=== PATIENT | female | born 1925 | race Caucasian/White ===

== ENCOUNTER 2016-12-29 11:30 | Emergency (ER) | payer MEDICARE ==
[2016-12-29] MEDS ORDERED: Sodium Chloride 0.9% 1000 ML 1,000 ML IV SCH (12:00)
--- NOTE | 2016-12-29 12:01 | ERPHSYRPT ---
- History of Present Illness Time Seen by Provider: 12/29/16 11:55 Source: patient, family Exam Limitations: no limitations Physician History: This is an 89-year-old white female with history of atrial fibrillation, peripheral vascular disease, edema, pulmonary nodule, Alzheimer's Patient is brought by her daughter with complaints that the patient has been having very foul-smelling urine has been extremely weak over the past 4 days. Patient has had an occasional cough, no fevers she denies any shortness of breath she denies any chest pain. The nurses report that the patient was extremely weak and had to be helped to stand. 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, iron deficiency anemia, degenerative joint disease, GERD, arthritis, lumbar radiculopathy, a kidney cyst, and hematuria past surgical history includes hysterectomy Timing/Duration: day(s) (symptoms for 4 days) Severity: moderate Modifying Factors: Improves With: nothing Associated Symptoms: loss of appetite, weakness, No nausea, No vomiting, No abdominal pain, No shortness of breath, No heartburn, No diaphoresis, No cough, No chills, No chest pain, No fever, No headaches, No malaise, No rash, No syncope, No seizure Allergies/Adverse Reactions: oxytetracycline [From Terramycin] Allergy (Verified 12/29/16 11:50) oxytetracycline HCl [From Terramycin] Allergy (Verified 12/29/16 11:50) Sulfa (Sulfonamide Antibiotics) Allergy (Verified 12/29/16 11:50) Home Medications: No Home Meds 1 [facility] UD 09/27/15 [History] Hx Tetanus, Diphtheria Vaccination/Date Given: No Hx Influenza Vaccination/Date Given: No Hx Pneumococcal Vaccination/Date Given: No - Review of Systems Constitutional: Weakness (patient has been weak and has not wanted to get out of bed for 4 days), No Fever, No Chills Eyes: No Symptoms Ears, Nose, & Throat: No Symptoms, No Ear Pain, No Ear Discharge, No Hearing Changes, No Tinnitus, No Nose Pain, No Nose Congestion, No Nose Discharge, No Sinus Drainage, No Epistaxis, No Mouth Pain, No Mouth Swelling, No Loose Teeth, No Throat Pain, No Throat Swelling, No Hoarse, No Painful Swallowing, No Snoring Respiratory: No Cough, No Dyspnea Cardiac: No Chest Pain, No Edema, No Syncope Abdominal/Gastrointestinal: Appetite Changes, No Abdominal Pain, No Nausea, No Vomiting, No Diarrhea Genitourinary Symptoms: Other (foul-smelling urine), No Dysuria, No Frequency, No Hematuria, No Hesitancy, No Incontinence, No Urgency, No Urinary Retention, No Flank Pain, No Menorrhagia, No , No Vaginal Bleeding, No Vaginal Discharge, No Vaginal Itching Musculoskeletal: No Back Pain, No Neck Pain Skin: No Rash Neurological: No Dizziness, No Focal Weakness, No Sensory Changes Psychological: No Symptoms Endocrine: No Symptoms All Other Systems: Reviewed and Negative - Past Medical History Pertinent Past Medical History: Yes Cardiac History: Arrhythmia Musculoskeletal History: Arthritis Other Medical History: anemia SHINGLES - Past Surgical History Past Surgical History: Yes Musculoskeletal: Orthopedic Surgery Female Surgical History: Hysterectomy Other Surgical History: ARM FRACTURE - Social History Smoking Status: Never smoker Exposure to second hand smoke: No Drug Use: none Patient Lives Alone: No - Nursing Vital Signs Nursing Vital Signs: Initial Vital Signs Temperature 97.9 F Temperature Source Oral Pulse Rate 92 Respiratory Rate 16 Blood Pressure [] 128/70 - Physical Exam General Appearance: no apparent distress, alert, other (well-developed elderly female alert oriented to person and place) Eye Exam: PERRL/EOMI, eyes nml inspection Ears, Nose, Throat Exam: normal ENT inspection, TMs normal, pharynx normal, moist mucous membranes Neck Exam: normal inspection, non-tender, supple, full range of motion Respiratory Exam: normal breath sounds, lungs clear, No respiratory distress Cardiovascular Exam: regular rate/rhythm, normal heart sounds, normal peripheral pulses Gastrointestinal/Abdomen Exam: soft, normal bowel sounds, No tenderness, No mass Back Exam: normal inspection, normal range of motion, No CVA tenderness, No vertebral tenderness Extremity Exam: normal inspection, normal range of motion, pelvis stable Neurologic Exam: alert, oriented x 3, cooperative, terminal worker II-XII nml as tested, normal mood/affect, other (patient is alert, oriented person and place, cranial nerves II through XII are intact tank builder are symmetrical and equal 5 over 5 finger to nose within normal limits speech is normal sensation intact to all extremities) Skin Exam: normal color, warm, dry, No rash SpO2 Interpretation: normal - Course Nursing assessment & vital signs reviewed: Yes EKG Interpreted by Me: RATE (73 bpm), Sinus Rhythm, NORMAL AXIS, NORMAL QRS, Other (EKG, atrial fibrillation 73 beats per minute normal axis no acute ST or T wave changes compared to September 27, 2015) - Radiology Exams Chest X-ray Interpretation: Interpreted by me, Negative, No Pneumonia, No Pneumothorax , Other (no acute disease process noted) Ordered Tests: Active Orders 24 hr Category Date Time Status Cath for Specimen-Straight STAT Care 12/29/16 11:52 Active EKG-ER Only STAT Care 12/29/16 11:52 Active IV Insertion STAT Care 12/29/16 11:52 Active CHEST 1 VIEW (PORTABLE) Stat Exams 12/29/16 11:52 Taken AMYLASE Stat Lab 12/29/16 12:02 Completed CBC W DIFF Stat Lab 12/29/16 12:02 Completed CMP Stat Lab 12/29/16 12:02 Completed LIPASE Stat Lab 12/29/16 12:02 Completed Lactic Acid Urgent Lab 12/29/16 12:03 Completed TROPONIN Stat Lab 12/29/16 12:02 Completed UA W/ MICROSCOPIC Stat Lab 12/29/16 13:00 Completed Medication Summary Generic Name Dose Route Start Last Admin Trade Name Freq PRN Reason Stop Dose Admin Sodium Chloride 1,000 mls @ 50 mls/hr 12/29/16 12:00 12/29/16 12:11 Sodium Chloride 0.9% 1000 Ml IV 01/28/17 11:59 50 mls/hr .Q20H CARMELINA Administration Discontinued Medications Generic Name Dose Route Start Last Admin Trade Name Freq PRN Reason Stop Dose Admin Sodium Chloride Confirm 12/29/16 12:02 Sodium Chloride 0.9% 1000 Ml Administered 12/29/16 12:03 Dose 1,000 mls @ ud .ROUTE .STK-MED ONE Lab/Rad Data: Laboratory Result Diagrams 12/29/16 12:02 12/29/16 12:02 Laboratory Results 12/29/16 12/29/16 12/29/16 Range/Units 13:00 12:03 12:02 WBC (4.0-10.5) K/mm3 RBC (4.1-5.4) M/mm3 Hgb (12.0-16.0) gm/dl Hct (35-47) % MCV (78-100) fl MCH (26-32) pg MCHC (32-36) g/dl RDW (11.5-14.0) % Plt Count (150-450) K/mm3 MPV (6-9.5) fl Gran % (36.0-66.0) % Lymphocytes % (24.0-44.0) % Monocytes % (0.0-12.0) % Eosinophils % (0.00-5.0) % Basophils % (0.0-0.4) % Basophils # (0-0.4) Sodium 141 (136-145) mEq/L Potassium 4.2 (3.5-5.1) mEq/L Chloride 105 (98-107) mEq/L Carbon Dioxide 26.7 (21-32) mEq/L Anion Gap 13.9 (5-15) MEQ/L BUN 16 (9-20) mg/dL Creatinine 0.85 (0.55-1.30) mg/dl Estimated GFR > 60 ML/MIN Glucose 89 (70-110) MG/DL Lactic Acid 1.0 (0.4-2.0) Calcium 8.9 (8.5-10.1) mg/dL Total Bilirubin 0.5 (0.2-1.0) mg/dL AST 17 (15-37) U/L ALT 14 (12-78) U/L Alkaline Phosphatase 73 (46-116) U/L Troponin I < 0.017 (0.000-0.056) ng/ml Serum Total Protein 6.5 (6.4-8.2) gm/dL Albumin 3.5 (3.4-5.0) g/dL Amylase 46 (25-115) U/L Lipase 171 (73-393) U/L Ur Collection Type CATH Urine Color YELLOW (YELLOW) Urine Appearance CLEAR (CLEAR) Urine pH 6.0 (5-6) Ur Specific [place] 1.015 (1.005-1.025) Urine Protein NEGATIVE (Negative) Urine Glucose (UA) NEGATIVE (NEGATIVE) mg/dL Urine Ketones NEGATIVE (NEGATIVE) Urine Nitrite NEGATIVE (NEGATIVE) Urine Bilirubin NEGATIVE (NEGATIVE) Urine Urobilinogen 1 (0-1) mg/dL Urine WBC (Auto) NEGATIVE (NEGATIVE) Urine RBC (Auto) MODERATE (0-5) Donald/ul Urine Microscopic RBC 10-15 (0-2) /HPF Urine Microscopic WBC 0-2 (0-5) /HPF Ur Epithelial Cells FEW (FEW) /HPF Urine Bacteria FEW (NEGATIVE) /HPF Urine Mucus SLIGHT (NEGATIVE) /HPF Specimen Received 12/29/16 1300 12/29/16 Range/Units 12:02 WBC 4.1 (4.0-10.5) K/mm3 RBC 3.61 L (4.1-5.4) M/mm3 Hgb 11.5 L (12.0-16.0) gm/dl Hct 35.1 (35-47) % MCV 97.2 (78-100) fl MCH 31.8 (26-32) pg MCHC 32.8 (32-36) g/dl RDW 15.3 H (11.5-14.0) % Plt Count 245 (150-450) K/mm3 MPV 9.8 H (6-9.5) fl Gran % 45.5 (36.0-66.0) % Lymphocytes % 39.2 (24.0-44.0) % Monocytes % 13.1 H (0.0-12.0) % Eosinophils % 1.7 (0.00-5.0) % Basophils % 0.5 (0.0-0.4) % Basophils # 0.02 (0-0.4) Sodium (136-145) mEq/L Potassium (3.5-5.1) mEq/L Chloride (98-107) mEq/L Carbon Dioxide (21-32) mEq/L Anion Gap (5-15) MEQ/L BUN (9-20) mg/dL Creatinine (0.55-1.30) mg/dl Estimated GFR ML/MIN Glucose (70-110) MG/DL Lactic Acid (0.4-2.0) Calcium (8.5-10.1) mg/dL Total Bilirubin (0.2-1.0) mg/dL AST (15-37) U/L ALT (12-78) U/L Alkaline Phosphatase (46-116) U/L Troponin I (0.000-0.056) ng/ml Serum Total Protein (6.4-8.2) gm/dL Albumin (3.4-5.0) g/dL Amylase (25-115) U/L Lipase (73-393) U/L Ur Collection Type Urine Color (YELLOW) Urine Appearance (CLEAR) Urine pH (5-6) Ur Specific [place] (1.005-1.025) Urine Protein (Negative) Urine Glucose (UA) (NEGATIVE) mg/dL Urine Ketones (NEGATIVE) Urine Nitrite (NEGATIVE) Urine Bilirubin (NEGATIVE) Urine Urobilinogen (0-1) mg/dL Urine WBC (Auto) (NEGATIVE) Urine RBC (Auto) (0-5) Donald/ul Urine Microscopic RBC (0-2) /HPF Urine Microscopic WBC (0-5) /HPF Ur Epithelial Cells (FEW) /HPF Urine Bacteria (NEGATIVE) /HPF Urine Mucus (NEGATIVE) /HPF Specimen Received - Progress Progress: improved Progress Note: 12/29/16 13:30 Patient's labs are all essentially normal. Patient's vitals are normal. EKG positive for atrial fibrillation with controlled rate patient does have a history of atrial fibrillation. Patient denies any pain shortness of breath. Patient's daughter feels like she can care for her at home. Will plan for patient to return home and follow-up with Dr. Talley Saturday. 12/29/16 13:37 12/29/16 13:54 Patient's daughter states that the patient chronically uses a walker or a wheelchair. - Departure Time of Disposition: 13:32 Departure Disposition: Home Clinical Impression: Weakness Condition: Fair Critical Care Time: No Referrals: VERNON TALLEY [Primary Care Provider] -
[2016-12-29 12:02] VITALS: O2SAT 96
[2016-12-29] MEDS ORDERED: Sodium Chloride 0.9% 1000 ML 1,000 ML ONE (12:02)
[2016-12-29 12:19] LABS: BASOPHIL % 0.5 % (0.0-0.4); Eosinophil % 1.7 % (0.00-5.0); Granulocytes % 45.5 % (36.0-66.0); Lymphocytes % 39.2 % (24.0-44.0); Mean Cell Volume 97.2 fl (78-100); Mean Platelet Volume 9.8 fl (6-9.5); Monocytes % 13.1 % (0.0-12.0); Platelet Count 245 K/mm3 (150-450); Red Blood Count 3.61 M/mm3 (4.1-5.4); Red Cell Distribution Width 15.3 % (11.5-14.0); White Blood Count 4.1 K/mm3 (4.0-10.5)
[2016-12-29 12:20] LABS: Mean Corpuscular Hemoglobin 31.8 pg (26-32)
[2016-12-29 12:38] LABS: ALBUMIN 3.5 g/dL (3.4-5.0); ALKALINE PHOSPHATASE 73 U/L (46-116); ANION GAP 13.9 MEQ/L (5-15); BILIRUBIN,TOTAL 0.5 mg/dL (0.2-1.0); BLOOD UREA NITROGEN 16 mg/dL (9-20); CHLORIDE 105 mEq/L (98-107); Carbon Dioxide 26.7 mEq/L (21-32); Glucose 89 MG/DL (70-110); LIPASE 171 U/L (73-393); Potassium 4.2 mEq/L (3.5-5.1); SGOT/AST 17 U/L (15-37); SGPT/ALT 14 U/L (12-78); SODIUM 141 mEq/L (136-145); Total Protein 6.5 gm/dL (6.4-8.2)
[2016-12-29 12:40] LABS: TROPONIN < 0.017 ng/ml (0.000-0.056)
[2016-12-29 13:07] LABS: Collection Type CATH
[2016-12-29 13:08] LABS: COMPLETE URINE MICROSCOPIC? YES
[2016-12-29 13:24] LABS: Bacteria FEW /HPF (NEGATIVE); Epithelial Cells FEW /HPF (FEW); Mucus SLIGHT /HPF (NEGATIVE); WBC 0-2 /HPF (0-5)
[2016-12-29 14:21] VITALS: BP 126/76; PULSE 88
--- NOTE | 2016-12-29 20:37 | XRAY ---
Indication: Weakness. Comparison: September 27, 2015. Portable chest again hyperinflated and clear. Heart and mediastinal structures stable and within normal limits for AP portable technique. Descending aorta remains tortuous. Stable hiatal hernia. Bony thorax intact again with mild osteopenia and multilevel spinal degenerative changes. Impression: Stable nonacute chest with chronic features.
== END 2016-12-29 14:19 | disposition home or self-care (01) ==
LOC: ED 11:30
DX: R53.1 Weakness (principal); R82.90 Unspecified abnormal findings in urine; I48.2 Chronic atrial fibrillation; I73.9 Peripheral vascular disease, unspecified; G30.9 Alzheimer's disease, unspecified; F02.80 Dementia in other diseases classified elsewhere, unspecified severity, without behavioral disturbance, psychotic disturbance, mood disturbance, and anxiety; D50.9 Iron deficiency anemia, unspecified
CPT/HCPCS: 99285; 36000; 96360; 96361; 93005; 82150; 81000; 36415; 83690; 85025; 80053; 84484; 71010; 83605; P9612; 99283